=== PATIENT | male | born 1960 | race Caucasian/White ===

== ENCOUNTER 2016-06-04 14:10 | Emergency (ER) ==
[2016-06-04] MEDS ORDERED: ZOFRAN ODT PO ONE (15:44)
[2016-06-04 15:57] LABS: MANUAL DIFF NEEDED? NO
[2016-06-04 16:01] LABS: BASO% 0.7 % (0.0-0.8); EOS% 1.6 % (0.0-10.0); HEMATOCRIT 47.1 % (42.0-52.0); HEMOGLOBIN 16.4 g/dL (14.0-18.0); IMM GRAN# 0.02 X1000 (0.0-0.04); IMM GRAN% 0.2 % (0.0-0.5); LYMPH# 1.31 X1000 (1.2-3.4); LYMPH% 10.7 % (20.5-51.1); MCH 31.2 PG (27-31); MCHC 34.8 g/dL (33-37); MCV 89.5 FL (81-99); MONO# 0.79 X1000 (0.11-0.59); MONO% 6.5 % (1.7-9.3); MPV 10.9 FL (7.4-10.4); NEUT% 80.3 % (42.2-75.2); PLT 294 X1000 (130-400); RBC 5.26 XMIL (4.7-6.1)
--- NOTE | 2016-06-04 16:23 | EKG Report ---
Test Performed on : 06/04/2016 4:12:49 PM Test Reason : WEAKNESS Blood Pressure : / mmHG Vent. Rate : 064 BPM Atrial Rate : 064 BPM P-R Int : 160 ms QRS Dur : 154 ms QT Int : 438 ms P-R-T Axes : 073 -04 105 degrees QTc Int : 451 ms Normal sinus rhythm. Left bundle branch block Abnormal ECG When compared with ECG of 04-JUN-2016 16:12, (Unconfirmed) Left bundle branch block is now present Criteria for Lateral infarct are no longer present Unconfirmed Result
--- NOTE | 2016-06-04 16:29 | ED EKG INTERP ---
EKG Interpretation - EKG Time of EKG reading by physician:: 16:12 EKG Read and Signed by:: Ruy Stark EKG Interpretation (*Must complete 3 of following elements*): Abnormal Rate: 64 Rhythm: normal sinus rhythm Comments: LBBB Attestation - Scribe Verification/Attestation Scribe:: Dennise Moffett Acting as Scribe for:: Ruy Stark Scribe documention review:: This chart was documented by a scribe and accurately reflects the service the provider performed and the decisions made by the provider.
[2016-06-04 16:31] LABS: ALBUMIN 4.5 g/dL (3.5-5.0); CALCIUM 9.8 mg/dL (8.8-10.2); TOTAL BILIRUBIN 0.5 mg/dL (0.20-1.00)
[2016-06-04 17:34] LABS: URINE SOURCE CLEAN CATCH
--- NOTE | 2016-06-04 17:57 | Diag Imaging Result Document ---
PROCEDURE NAME: HEAD W/O CONTRAST - 06/04/2016 CT BRAIN WITHOUT. DOSE REDUCTION PROTOCOL: COMPARISON: 06/10/2014. FINDINGS: No parenchymal hemorrhage. No epidural or subdural hematoma. No subarachnoid hemorrhage. No mass identified on this noncontrasted exam. No hydrocephalus. No sinus opacification. IMPRESSION: No hemorrhage. Negative brain CT without contrast. A preliminary report was given at 4:31 p.m.
--- NOTE | 2016-06-04 17:59 | Diag Imaging Result Document ---
PROCEDURE NAME: CHEST-2 VIEWS - 06/04/2016 FRONTAL AND LATERAL CHEST, TWO VIEWS: COMPARISON: 10/23/2014. FINDINGS: The lungs are well expanded. The heart is not enlarged. The vessels are not distended. No pneumonia. No pleural effusions. There is a granuloma in the midleft lung. IMPRESSION: No acute abnormality.
[2016-06-04 18:08] LABS: BILIRUBIN URINE NEGATIVE (NEGATIVE); BLOOD URINE NEGATIVE (NEGATIVE); CLARITY SL. CLOUDY (CLEAR); COLOR YELLOW; GLUCOSE URINE NEGATIVE (NEGATIVE); LEUKOCYTES URINE TRACE (NEGATIVE); NITRITE URINE NEGATIVE (NEGATIVE); PH URINE 6.5; PROTEIN URINE TRACE mg/dL (NEGATIVE); SP GRAVITY URINE 1.015; URINE EPITHELIAL CELLS <10 /HPF (<10); URINE MICROSCOPIC NEEDED? YES; URINE WBC <10 /HPF (<10); UROBILINOGEN URINE 1+(1 mg/dL)
--- NOTE | 2016-06-04 18:09 | PROVIDER DOCUMENTATION ---
HPI-General Adult - General Chief Complaint: Weakness Stated Complaint: WEAKNESS/N/V/DOUBLE VISION Time Seen by Provider: 06/04/16 15:28 Source: patient Allergies/Adverse Reactions: Patient Allergies Allergy/AdvReac Type Severity Reaction Status Date / Time codeine [Codeine] Allergy Unknown Unknown Verified 11/25/14 16:02 Home Medications: Home Medication List Medication Instructions Recorded Confirmed Last Taken Type Aspirin 81 mg PO DAILY 06/11/14 11/25/14 06/10/14 History Omeprazole [Prilosec] 40 mg PO DAILY 06/11/14 11/25/14 06/10/14 History Lamotrigine [Lamictal Xr] 900 mg PO DAILY #0 tab.er.[id number] 06/12/14 11/25/14 Unknown Rx Hydrocodone/Ibuprofen 7.5 mg PO BID 11/25/14 11/25/14 Unknown History [Hydrocodone-Ibuprofen 7.5-200] Methocarbamol 750 mg PO BID 11/25/14 11/25/14 Unknown History Promethazine [Phenergan] 25 mg PO Q6H PRN PRN #20 tablet 11/25/14 Unknown Rx Ondansetron [Zofran] 4 mg PO Q6H PRN PRN #15 tablet 06/04/16 Unknown Rx Walker [Ultra-Light Rollator] 1 each MC NOW #1 each 06/04/16 Unknown Rx - History of Present Illness -Gen Adult Nature of Presenting Problems: 55 yo male presents to ER with c/o increased weakness, double vision, shortness of breath, headache for the past 2 days. Location of Pain/Injury: reports: head Pain Radiation: reports: no radiation Quality of Pain: reports: aching Severity: reports: mild Onset/Duration: reports: 2 days ago Timing: reports: still present Context/Activities at Onset: reports: none Modifying Factors: improves with: nothing Associated Symptoms: reports: headaches Similar Symptoms Previously?: Yes Recently seen or treated by another doctor?: No Review of Systems - Adult - REVIEW OF SYSTEMS - ADULT Constitutional: reports: see HPI, other (weakness) Eyes: reports: see HPI, blurred vision Ears, Nose, Mouth & Throat: reports: no symptoms reported Cardiovascular: reports: no symptoms reported Respiratory: reports: no symptoms reported Gastrointestinal: reports: no symptoms reported Genitourinary: reports: no symptoms reported Musculoskeletal: reports: no symptoms reported Integumentary: reports: no symptoms reported Neurological: reports: see HPI, headache/migraines Psychiatric: reports: no symptoms reported Endocrine: reports: no symptoms reported Hematologic/Lymphatic: reports: no symptoms reported Allergic/Immunologic: reports: no symptoms reported All Other Systems: Reviewed and Negative Past History - Adult - PAST MEDICAL HISTORY-ADULT Review of Records: reports: Old Records Reviewed, Nursing Assessment Review, Medications Reviewed, Social history reviewed & non-contributory. Major Childhood Illnesses: reports: denies history Cardiovascular: reports: HTN, hyperlipidemia Respiratory: reports: denies history Gastrointestinal: reports: denies history Obstetrical/Gynecological: reports: denies history Genitourinary: reports: denies history Musculoskeletal: reports: denies history Neurological: reports: Seizures/Epilepsy Endocrine/Immune: reports: denies history Other Conditions: reports: denies history - PRIOR SURGERIES/PROCEDURES Surgical/Procedure History: reports: tonsillectomy - IMMUNIZATION STATUS Childhood Immunizations: See Nurse Assessment Flu Vaccine: See Nurse Assessment - FAMILY HISTORY Family History: reviewed, not pertinent - SOCIAL HISTORY Smoking: cigarettes, greater than 1 pack/day (1 ppd) Provider spent 3-5 mins advising pt. on dangers of tobacco.: Discussed manners to quit use, and f/u contacts for add'l counseling. Substance Use: none/never, denies Alcohol Use Frequency: never Living Situation: family Physical Exam-General - PHYSICAL EXAM-ADULT Initial Vital Signs Reviewed: Yes - CONSTITUTIONAL General Appearance: appears well, alert, no apparent distress - EYES Eyes: PERRL/EOMI, pink conjunctivae - HEAD, EARS, NOSE, MOUTH & THROAT HENMT: normocephalic/atraumatic, moist mucous membranes - RESPIRATORY Respiratory: lungs clear, normal breath sounds, no respiratory distress - CARDIOVASCULAR Cardiovascular: normal peripheral pulses, regular rate, rhythm - GASTROINTESTINAL (ABDOMEN) Abdominal Exam: normal bowel sounds, non tender, soft - MUSCULOSKELETAL Back Exam: normal inspection, no CVA tenderness, no vertebral tenderness Extremity: non-tender, normal inspection, no pedal edema Peripheral Pulses: radial (R): 2+, radial (L): 2+, dorsalis-pedis (R): 2+, dorsalis-pedis (L): 2+ - SKIN Integumentary: normal color, normal turgor, warm/dry - NEUROLOGIC Neurologic: grossly normal - PSYCHIATRIC Psych/Mental Status: normal mood/affect, normal thought content, normal thought process, oriented x 3 Progress - PLAN OF CARE/RESULTS Progress/Plan/Lab Results: 1820-While discussing results/discharge instructions with patient; his spouse told me he had been off his lamictal for 1.5 months (due to mail order pharmacy error) and has only been back on it the past 1.5 weeks. They also told me that he had similar symptoms last year and was in for evaluation but was never given an answer. I instructed them to follow up with neurologist and to let him know that he had been off medications for an extended amount of time. Laboratory Tests 06/04/16 06/04/16 06/04/16 14:12 15:50 15:50 WBC RBC Hgb Hct MCV MCH MCHC RDW Std Deviation Plt Count MPV Immature Gran % (Auto) Neut % (Auto) Lymph % (Auto) [place] % (Auto) Eos % (Auto) Baso % (Auto) Immature Gran # (Auto) Neut # (Auto) Lymph # (Auto) [place] # (Auto) Eos # (Auto) Baso # (Auto) Sodium 137 Potassium 4.0 Chloride 99 Carbon Dioxide 26 Anion Gap 12 BUN 10 Creatinine 1.3 H Estimated GFR/1.73 m2 57 BUN/Creatinine Ratio 8 Glucose 110 H POC Glucose 107 H Calculated Osmolality 274 Calcium 9.8 Total Bilirubin 0.50 AST 15 ALT 10 Alkaline Phosphatase 78 Creatine Kinase 96 Troponin T < 0.010 Total Protein 7.0 Albumin 4.5 Globulin 3.0 Albumin/Globulin Ratio 2.0 Urine Source Urine Color Urine Clarity Urine pH Ur Specific Wilmer Urine Protein Urine Ketones Urine Blood Urine Nitrite Urine Bilirubin Urine Urobilinogen Urine Microscopic RBC Urine WBC Urine Microscopic WBC Ur Epithelial Cells Urine Glucose 06/04/16 06/04/16 15:50 17:23 WBC 12.22 H RBC 5.26 Hgb 16.4 Hct 47.1 MCV 89.5 MCH 31.2 H MCHC 34.8 RDW Std Deviation 14.3 Plt Count 294 MPV 10.9 H Immature Gran % (Auto) 0.2 Neut % (Auto) 80.3 H Lymph % (Auto) 10.7 L [place] % (Auto) 6.5 Eos % (Auto) 1.6 Baso % (Auto) 0.7 Immature Gran # (Auto) 0.02 Neut # (Auto) 9.82 H Lymph # (Auto) 1.31 [place] # (Auto) 0.79 H Eos # (Auto) 0.20 Baso # (Auto) 0.08 Sodium Potassium Chloride Carbon Dioxide Anion Gap BUN Creatinine Estimated GFR/1.73 m2 BUN/Creatinine Ratio Glucose POC Glucose Calculated Osmolality Calcium Total Bilirubin AST ALT Alkaline Phosphatase Creatine Kinase Troponin T Total Protein Albumin Globulin Albumin/Globulin Ratio Urine Source CLEAN CATCH Urine Color YELLOW Urine Clarity SL. CLOUDY A Urine pH 6.5 Ur Specific [place] 1.015 Urine Protein TRACE A Urine Ketones 1+(Small) A Urine Blood NEGATIVE Urine Nitrite NEGATIVE Urine Bilirubin NEGATIVE Urine Urobilinogen 1+(1 mg/dL) Urine Microscopic RBC Not Reportable Urine WBC TRACE A Urine Microscopic WBC <10 Ur Epithelial Cells <10 Urine Glucose NEGATIVE Orders Category Date Time Status ED: Orthostatic Vital Signs (E as directed Care 06/04/16 15:30 Active IV Insertion ORDERED Care 06/04/16 15:42 Active CHEST-2 VIEWS [RAD] Stat Exams 06/04/16 15:43 Completed HEAD W/O CONTRAST [CT] Stat Exams 06/04/16 15:42 Completed CBC WITH ELECTRONIC DIFF [HEME] Stat Lab 06/04/16 15:50 Completed CK PROFILE [SP CHEM] Stat Lab 06/04/16 15:50 Completed COMPREHENSIVE METABOLIC PANEL [CHEM] Stat Lab 06/04/16 15:50 Completed TROPONIN T Stat Lab 06/04/16 15:[address] [URINALYSIS] Stat Lab 06/04/16 17:23 Completed URINE MICROSCOPIC [URINALYSIS] Stat Lab 06/04/16 17:23 Completed Butalbital/APAP/Caffeine [Fioricet] Med 06/04/16 18:30 Discontinued 1 each PO NOW ONE Ondansetron Odt [Zofran Odt] Med 06/04/16 15:44 Discontinued 4 mg PO NOW ONE EKG [EKG] Stat Ther 06/04/16 15:42 Draft Vital Signs - 24 hr 06/04/16 06/04/16 06/04/16 14:10 15:44 16:47 Temperature 97 F L Pulse Rate 73 65 Pulse Rate [ 66 Sitting] Pulse Rate [ 71 Standing] Pulse Rate [ 63 Supine] Respiratory 24 16 Rate Blood Pressure 138/76 144/81 Blood Pressure 128/079 [Sitting] Blood Pressure 137/084 [Standing] Blood Pressure 129/079 [Supine] O2 Sat by Pulse 100 98 Oximetry 06/04/16 06/04/16 06/04/16 17:00 17:16 17:30 Temperature Pulse Rate 61 64 65 Pulse Rate [ Sitting] Pulse Rate [ Standing] Pulse Rate [ Supine] Respiratory 14 21 19 Rate Blood Pressure 144/82 153/86 143/84 Blood Pressure [Sitting] Blood Pressure [Standing] Blood Pressure [Supine] O2 Sat by Pulse 98 98 95 Oximetry 06/04/16 06/04/16 06/04/16 17:45 18:00 18:15 Temperature Pulse Rate 73 69 66 Pulse Rate [ Sitting] Pulse Rate [ Standing] Pulse Rate [ Supine] Respiratory 13 15 18 Rate Blood Pressure 138/72 129/87 123/87 Blood Pressure [Sitting] Blood Pressure [Standing] Blood Pressure [Supine] O2 Sat by Pulse 98 97 97 Oximetry - REASSESSMENT Reassessment #1 Time Reassessed: 17:00 (PO challange tolerated) Status: improving Departure - Departure Time of Disposition Order: 18:33 DIAGNOSIS: Weakness Headache Qualifiers: Headache type: other headache syndrome Qualified Code(s): G44.89 - Other headache syndrome Nausea & vomiting Qualifiers: Vomiting type: unspecified Vomiting Intractability: non-intractable Qualified Code(s): R11.2 - Nausea with vomiting, unspecified Disposition: HOME 01 Certified Medical Emergency: Emergent Condition: Good Additional Instructions: Follow up with neurologist. Continue home medications as prescribed. ED Follow Up Instructions: You have been treated by a care provider in the Emergency Department. These instructions are being provided to you so you can have an understanding of how to care for yourself upon discharge. Upon discharge from the Emergency Department, you are responsible for making arrangements for follow-up care by a physician of your choice. Take all prescribed medications as directed. Return to the Emergency Department immediately for any new or worsening symptoms. You may call the Physician Referral phone number at [phone] to obtain a list of Physicians who are taking new patients. Prescriptions: Walker [Ultra-Light Rollator] 1 each MC NOW #1 each Ondansetron [Zofran] 4 mg PO Q6H PRN PRN #15 tablet PRN Reason: Nausea Referrals: Gurjit Calderon MD [STAFF PHYSICIAN] - None,PCP [Primary Care Provider] - Forms: Return to School/Parent Work Instructions: Migraine Headache, [id number], Ondansetron oral dissolving tablet, Nausea and Vomiting, Walker Use, Weakness Attestation - Physician/ RYLIE Attestation Patient care was provided by Advanced Practice Provider:: Yes Advanced Practice Provider:: Renea Newman Advanced Practice Provider documentation review:: The Mid-level provider documentation, treatment plan and medical decision making was reviewed by the physician who agrees with all treatment and medical decision making by the MLP.
[2016-06-04 18:24] VITALS: BP 123/87
[2016-06-04] MEDS ORDERED: FIORICET PO ONE (18:30)
== END 2016-06-04 18:50 | disposition home or self-care (01) ==
LOC: P.ED 14:10
DX: R53.1 Weakness (principal); R51 Headache; R11.2 Nausea with vomiting, unspecified; R94.31 Abnormal electrocardiogram [ECG] [EKG]; H53.2 Diplopia; R06.02 Shortness of breath; H53.8 Other visual disturbances; I10 Essential (primary) hypertension; E78.5 Hyperlipidemia, unspecified; R56.9 Unspecified convulsions; F17.210 Nicotine dependence, cigarettes, uncomplicated; Z79.82 Long term (current) use of aspirin; Z79.899 Other long term (current) drug therapy; Z71.6 Tobacco abuse counseling
CPT/HCPCS: 70450; 71020; 80053; 81001; 82550; 82948; 84484; 85025; 93005